=== PATIENT | male | born 1970 | race Caucasian/White ===

== ENCOUNTER → 2017-04-27 | Day surgery (SDC) | payer OTHER ==
[~2017-04-27] VITALS: Ht 180.3 cm; Wt 124.9 kg
[~2017-04-27] MED LIST: BENAZEPRIL-HCT1 EAC2 PO; FEOSOL325 MG PO; OMEPRAZOLE40 MG PO; PROVENTIL OR V6.7 GM INH; VIAGRA100 MG PO
== END ==
LOC: GPOC 04-24 11:00 → GEND 06:44
PROC: 0DB88ZX Excision of Small Intestine, Via Natural or Artificial Opening Endoscopic, Diagnostic (ICD-10-PCS; principal; 2017-04-27)
PROC: 0DB58ZX Excision of Esophagus, Via Natural or Artificial Opening Endoscopic, Diagnostic (ICD-10-PCS; 2017-04-27)
PROC: 0DB68ZX Excision of Stomach, Via Natural or Artificial Opening Endoscopic, Diagnostic (ICD-10-PCS; 2017-04-27)
PROC: 0DBH8ZX Excision of Cecum, Via Natural or Artificial Opening Endoscopic, Diagnostic (ICD-10-PCS; 2017-04-27)
PROC: 0DBL8ZX Excision of Transverse Colon, Via Natural or Artificial Opening Endoscopic, Diagnostic (ICD-10-PCS; 2017-04-27)
DX: D12.3 Benign neoplasm of transverse colon (principal); D12.0 Benign neoplasm of cecum; K31.7 Polyp of stomach and duodenum; D50.9 Iron deficiency anemia, unspecified; K44.9 Diaphragmatic hernia without obstruction or gangrene; K21.9 Gastro-esophageal reflux disease without esophagitis; F41.9 Anxiety disorder, unspecified; F32.9 Major depressive disorder, single episode, unspecified; G47.30 Sleep apnea, unspecified; Z88.0 Allergy status to penicillin; Z79.899 Other long term (current) drug therapy; Z88.1 Allergy status to other antibiotic agents
CPT/HCPCS: J1610; J2001; J7120